=== PATIENT | female | born 1985 | race Caucasian/White ===

== ENCOUNTER 2018-09-26 17:50 | Emergency (ER) | payer OTHER, MEDICAID, SELFPAY ==
[2018-09-26 17:51] VITALS: BP 117/68; PULSE 84; RESP 16; TEMP 36.6; O2SAT 100; BMI 20.5
--- NOTE | 2018-09-26 19:05 | ED.DENTAL ---
HPI - Dental/Oral <KOKI Mccoy - Last Filed: 09/26/18 21:58> General Chief complaint: Dental/Oral Stated complaint: ABSCESS TOOTH RT SIDE Time Seen by Provider: 09/26/18 19:05 Source: patient Mode of arrival: ambulatory Limitations: no limitations History of Present Illness HPI Narrative: 33-year-old healthy female that is a nonsmoker here for complaint of pain into her right oral/dental area over the past week. She was treated by her dentist with Flagyl for this she reports that the symptoms have not improved. She is currently awaiting to have dental work done to fractured tooth and also to her wisdom tooth on that side. She denies any drainage from the area. No trauma. No fevers no chills. She denies any other concerns or complaints at this timeframe. Related Data Previous Rx's Medication Instructions Recorded hydrocodone-acetaminophen [[place]] 1 tab PO Q4HP PRN #7 tab 11/18/16 clindamycin HCl 450 mg PO TID #32 cap 09/26/18 hydrocodone-acetaminophen [[place]] 1 tab PO Q6H PRN #6 tab 09/26/18 Allergies Allergy/AdvReac Type Severity Reaction Status Date / Time Cephalosporins Allergy Unknown Verified 09/26/18 17:56 [CEPHALOSPORINS] latex [LATEX] Allergy Unknown Verified 09/26/18 17:56 Penicillins [PENICILLINS] Allergy Unknown Verified 09/26/18 17:56 amoxicillin Allergy Verified 09/26/18 17:56 Review of Systems <KOKI Mccoy - Last Filed: 09/26/18 21:58> Constitutional Denies chills, Denies fever(s), Denies lethargy and Denies weakness Eyes Denies change in vision, Denies eye discharge, Denies irritation and Denies loss of vision ENT Ears, Nose, Mouth, and Throat: Denies throat swelling Comments: Dental pain into right lower oral area Cardiovascular Denies chest pain, Denies irregular heart rhythm, Denies lightheadedness, Denies palpitations and Denies orthopnea Respiratory Denies wheezing Gastrointestinal Gastrointestinal: Denies abdominal pain, Denies change in bowel habits, Denies diarrhea, Denies nausea and Denies vomiting Genitourinary Denies hematuria, Denies flank pain, Denies urinary incontinence and Denies urinary urgency Musculoskeletal Denies back pain, Denies muscle weakness, Denies numbness and Denies tingling Integumentary/Breasts Denies pruritus, Denies erythema, Denies rash and Denies wounds Neurologic Denies confusion, Denies loss of vision, Denies numbness, Denies tingling and Denies weakness Psychiatric Denies anxiety, Denies confusion, Denies depression, Denies homicidal ideation and Denies suicidal ideation Endocrine Denies palpitations Hematologic/Lymphatic Denies easy bruising Allergic/Immunologic Denies urticaria, Denies throat swelling and Denies wheezing PFSH <KOKI Mccoy - Last Filed: 09/26/18 21:58> Social History Smoking Status: Never smoker Social History Smoking Status: Never smoker Exam <KOKI Mccoy - Last Filed: 09/26/18 21:58> Initial Vital Signs Initial Vital Signs: Vital Signs Temperature 97.9 F 09/26/18 17:51 Pulse Rate 84 09/26/18 17:51 Respiratory Rate 16 09/26/18 17:51 Blood Pressure 117/68 09/26/18 17:51 Pulse Oximetry 100 09/26/18 17:51 HENMT Mouth: oral mucosae normal and moist mucous membranes Teeth and gingiva: fair dentition and gingiva abnormal (Tenderness on palpation to the gingival area. No induration or fluctuance.) other (Fracture to right rear lower molar.) Eyes Conjunctivae: conjunctivae normal Sclera: sclerae normal Pupils: PERRL EOM: EOM intact bilaterally Resp Effort & Inspection: normal respiratory effort, able to speak in complete sentences, no respiratory distress and no use of accessory muscles Auscultation: clear to auscultation bilaterally, no rales, no rhonchi and no wheezes Cardio Rate: regular rate Rhythm: regular rhythm Heart Sounds: no click, no gallops, no murmurs and no rubs Pulses: normal peripheral pulses Skin General: no rashes or lesions noted, No jaundice and No petechiae Neuro General: alert, oriented x3, gait normal and no focal motor deficits Speech: speech normal <Donita Banerjee DO - Last Filed: 09/27/18 00:53> Initial Vital Signs Initial Vital Signs: Vital Signs Temperature 97.9 F 09/26/18 17:51 Pulse Rate 84 09/26/18 17:51 Respiratory Rate 16 09/26/18 17:51 Blood Pressure 117/68 09/26/18 17:51 Pulse Oximetry 100 09/26/18 17:51 Course <KOKI Mccoy - Last Filed: 09/26/18 21:58> Vital Signs - 8 hr 09/26/18 17:51 09/26/18 20:02 Temperature 97.9 F 98.1 F Pulse Rate 84 79 Respiratory Rate 16 16 Blood Pressure 117/68 104/59 L Pulse Oximetry 100 98 <Donita Banerjee DO - Last Filed: 09/27/18 00:53> Vital Signs - 8 hr 09/26/18 17:51 09/26/18 20:02 Temperature 97.9 F 98.1 F Pulse Rate 84 79 Respiratory Rate 16 16 Blood Pressure 117/68 104/59 L Pulse Oximetry 100 98 MDM - Dental/Oral <KOKI Mccoy - Last Filed: 09/26/18 21:58> MDM Narrative Medical decision making narrative: Sinus symptoms presents as dental infection/starting abscess. No induration of fluctuance is appreciated on exam. Will add clindamycin to a metronidazole for treatment. Follow up with dentist here in the next few days for re-evaluation. [id number] Tylenol or Motrin as needed for any discomfort. Small amount of [place] is prescribed for breakthrough pain and not covered by Tylenol or Motrin. For any worsening symptoms return to the emergency room. Discharge Plan Departure Patient Disposition: Home Clinical Impression: Dental abscess Discharge Date/Time: 09/26/18 20:01 Interventions: ED Discharge Assessment Last Done: 09/26/18 20:02 Instructions: Tooth Abscess Activity Restrictions/Additional Instructions: Antibiotic clindamycin has been added to metronidazole. Follow up with your dentist for further evaluation and treatment of dental caries. Use [id number] Tylenol or Motrin as needed for any discomfort. You have been prescribed a small amount of [place] for breakthrough pain use as directed no driving while on the [place]. For any worsening symptoms return to the emergency room. Follow up with primary care provider. Prescriptions: New clindamycin HCl 300 mg capsule 450 mg PO TID Qty: 32 RF: 0 hydrocodone-acetaminophen [[place]] 5-325 mg tablet 1 tab PO Q6H PRN (Reason: pain) Qty: 6 RF: 0 No Action hydrocodone-acetaminophen [[place]] 5 MG/325 MG tablet 1 tab PO Q4HP PRNQty: 7 RF: 0 Referrals: Jeff Ayala MD [Primary Care Provider] - <Donita Banerjee DO - Last Filed: 09/27/18 00:53> Cosign ED Attending [place]ature Attestation: I was immediately available in the department for consultation. Documentation has been reviewed. I agree with assessment and plan.
--- NOTE | 2018-09-26 19:48 | ED_ITS ---
HPI - Dental/Oral <KOKI Mccoy - Last Filed: 09/26/18 21:58> General Chief complaint: Dental/Oral Stated complaint: ABSCESS TOOTH RT SIDE Time Seen by Provider: 09/26/18 19:05 Source: patient Mode of arrival: ambulatory Limitations: no limitations History of Present Illness HPI Narrative: 33-year-old healthy female that is a nonsmoker here for complaint of pain into her right oral/dental area over the past week. She was treated by her dentist with Flagyl for this she reports that the symptoms have not improved. She is currently awaiting to have dental work done to fractured tooth and also to her wisdom tooth on that side. She denies any drainage from the area. No trauma. No fevers no chills. She denies any other concerns or complaints at this timeframe. Related Data Previous Rx's Medication Instructions Recorded hydrocodone-acetaminophen [[place]] 1 tab PO Q4HP PRN #7 tab 11/18/16 clindamycin HCl 450 mg PO TID #32 cap 09/26/18 hydrocodone-acetaminophen [[place]] 1 tab PO Q6H PRN #6 tab 09/26/18 Allergies Allergy/AdvReac Type Severity Reaction Status Date / Time Cephalosporins Allergy Unknown Verified 09/26/18 17:56 [CEPHALOSPORINS] latex [LATEX] Allergy Unknown Verified 09/26/18 17:56 Penicillins [PENICILLINS] Allergy Unknown Verified 09/26/18 17:56 amoxicillin Allergy Verified 09/26/18 17:56 Review of Systems <KOKI Mccoy - Last Filed: 09/26/18 21:58> Constitutional Denies chills, Denies fever(s), Denies lethargy and Denies weakness Eyes Denies change in vision, Denies eye discharge, Denies irritation and Denies loss of vision ENT Ears, Nose, Mouth, and Throat: Denies throat swelling Comments: Dental pain into right lower oral area Cardiovascular Denies chest pain, Denies irregular heart rhythm, Denies lightheadedness, Denies palpitations and Denies orthopnea Respiratory Denies wheezing Gastrointestinal Gastrointestinal: Denies abdominal pain, Denies change in bowel habits, Denies diarrhea, Denies nausea and Denies vomiting Genitourinary Denies hematuria, Denies flank pain, Denies urinary incontinence and Denies urinary urgency Musculoskeletal Denies back pain, Denies muscle weakness, Denies numbness and Denies tingling Integumentary/Breasts Denies pruritus, Denies erythema, Denies rash and Denies wounds Neurologic Denies confusion, Denies loss of vision, Denies numbness, Denies tingling and Denies weakness Psychiatric Denies anxiety, Denies confusion, Denies depression, Denies homicidal ideation and Denies suicidal ideation Endocrine Denies palpitations Hematologic/Lymphatic Denies easy bruising Allergic/Immunologic Denies urticaria, Denies throat swelling and Denies wheezing PFSH <KOKI Mccoy - Last Filed: 09/26/18 21:58> Social History Smoking Status: Never smoker Social History Smoking Status: Never smoker Exam <KOKI Mccoy - Last Filed: 09/26/18 21:58> Initial Vital Signs Initial Vital Signs: Vital Signs Temperature 97.9 F 09/26/18 17:51 Pulse Rate 84 09/26/18 17:51 Respiratory Rate 16 09/26/18 17:51 Blood Pressure 117/68 09/26/18 17:51 Pulse Oximetry 100 09/26/18 17:51 HENMT Mouth: oral mucosae normal and moist mucous membranes Teeth and gingiva: fair dentition and gingiva abnormal (Tenderness on palpation to the gingival area. No induration or fluctuance.) other (Fracture to right rear lower molar.) Eyes Conjunctivae: conjunctivae normal Sclera: sclerae normal Pupils: PERRL EOM: EOM intact bilaterally Resp Effort & Inspection: normal respiratory effort, able to speak in complete sentences, no respiratory distress and no use of accessory muscles Auscultation: clear to auscultation bilaterally, no rales, no rhonchi and no wheezes Cardio Rate: regular rate Rhythm: regular rhythm Heart Sounds: no click, no gallops, no murmurs and no rubs Pulses: normal peripheral pulses Skin General: no rashes or lesions noted, No jaundice and No petechiae Neuro General: alert, oriented x3, gait normal and no focal motor deficits Speech: speech normal <Donita Banerjee DO - Last Filed: 09/27/18 00:53> Initial Vital Signs Initial Vital Signs: Vital Signs Temperature 97.9 F 09/26/18 17:51 Pulse Rate 84 09/26/18 17:51 Respiratory Rate 16 09/26/18 17:51 Blood Pressure 117/68 09/26/18 17:51 Pulse Oximetry 100 09/26/18 17:51 Course <KOKI Mccoy - Last Filed: 09/26/18 21:58> Vital Signs - 8 hr 09/26/18 17:51 09/26/18 20:02 Temperature 97.9 F 98.1 F Pulse Rate 84 79 Respiratory Rate 16 16 Blood Pressure 117/68 104/59 L Pulse Oximetry 100 98 <Donita Banerjee DO - Last Filed: 09/27/18 00:53> Vital Signs - 8 hr 09/26/18 17:51 09/26/18 20:02 Temperature 97.9 F 98.1 F Pulse Rate 84 79 Respiratory Rate 16 16 Blood Pressure 117/68 104/59 L Pulse Oximetry 100 98 MDM - Dental/Oral <KOKI Mccoy - Last Filed: 09/26/18 21:58> MDM Narrative Medical decision making narrative: Sinus symptoms presents as dental infection/starting abscess. No induration of fluctuance is appreciated on exam. Will add clindamycin to a metronidazole for treatment. Follow up with dentist here in the next few days for re-evaluation. [id number] Tylenol or Motrin as needed for any discomfort. Small amount of [place] is prescribed for breakthrough pain and not covered by Tylenol or Motrin. For any worsening symptoms return to the emergency room. Discharge Plan Departure Patient Disposition: Home Clinical Impression: Dental abscess Discharge Date/Time: 09/26/18 20:01 Interventions: ED Discharge Assessment Last Done: 09/26/18 20:02 Instructions: Tooth Abscess Activity Restrictions/Additional Instructions: Antibiotic clindamycin has been added to metronidazole. Follow up with your dentist for further evaluation and treatment of dental caries. Use [id number] Tylenol or Motrin as needed for any discomfort. You have been prescribed a small amount of [place] for breakthrough pain use as directed no driving while on the [place]. For any worsening symptoms return to the emergency room. Follow up with primary care provider. Prescriptions: New clindamycin HCl 300 mg capsule 450 mg PO TID Qty: 32 RF: 0 hydrocodone-acetaminophen [[place]] 5-325 mg tablet 1 tab PO Q6H PRN (Reason: pain) Qty: 6 RF: 0 No Action hydrocodone-acetaminophen [[place]] 5 MG/325 MG tablet 1 tab PO Q4HP PRNQty: 7 RF: 0 Referrals: Jeff Ayala MD [Primary Care Provider] - <Donita Banerjee DO - Last Filed: 09/27/18 00:53> Cosign ED Attending [place]ature Attestation: I was immediately available in the department for consultation. Documentation has been reviewed. I agree with assessment and plan.
[2018-09-26 20:02] VITALS: BP 104/59; PULSE 79; RESP 16; TEMP 36.7; O2SAT 98
== END 2018-09-26 20:01 | disposition home or self-care (01) ==
PROVIDERS: Emergency Provider Nurse Practitioner Family; PCP Family Medicine
DX: K04.7 Periapical abscess without sinus (principal)
CPT/HCPCS: 99282